=== PATIENT | male | born 1985 | race Caucasian/White ===

== ENCOUNTER 2017-03-06 02:30 | Emergency (ER) | payer OTHER ==
[~2017-03-06] VITALS: Ht 175.3 cm; Wt 77.4 kg
[2017-03-06 02:34] VITALS: Ht 175.3 cm; Wt 77.4 kg
[2017-03-06] MEDS ORDERED: SODIUM CHLORIDE 0.9% 1000ML 1,000 ML IV STA ×3 (02:47→05:41)
[2017-03-06] MEDS ORDERED: OPTIRAY 320 IV PRN (03:00)
[2017-03-06] MEDS ORDERED: ERTAPENEM 1 GM ADDVIAL IV ONE (03:15)
[2017-03-06] MEDS ORDERED: DIPHTHERIA/TETANUS/PERTUSSIS 0.5 ML SYR/VIAL IM. ONE (03:15)
[2017-03-06 03:25] LABS: ISTAT HEMOGLOBIN 13.9 g/dl (14.0-18.0); ISTAT IONIZED CALCIUM 1.15 mmol/l (1.12-1.32)
[2017-03-06] MEDS ORDERED: ONDANSETRON INJ 2 MG/ML 2 ML VIAL IV STA (03:25)
[2017-03-06] MEDS ORDERED: MoRPHine SULFATE 4 MG/ML 1 ML CARP\\VIAL IV STA (03:25)
[2017-03-06 03:27] LABS: ALT/SGPT 27 U/L (12-78); AST/SGOT 19 U/L (15-37); BLOOD UREA NITROGEN 16 mg/dl (7-18); BUN/CREATININE RATIO 15.7 (10-20); CALCIUM 8.2 mg/dl (8.5-10.1); CARBON DIOXIDE 23 mmol/L (21-32); CHLORIDE 108 mmol/L (98-107); CREATININE 0.99 mg/dl (0.60-1.40); GLUCOSE 85 mg/dl (70-99); POTASSIUM 3.7 mmol/L (3.5-5.1); SODIUM 142 mmol/L (136-145)
[2017-03-06 03:30] LABS: ALKALINE PHOSPHATASE 58 U/L (45-117)
[2017-03-06 03:35] LABS: MEAN CELL VOLUME 87.9 fL (80-100); MEAN CORPUSCULAR HEMOGLOBIN 30.8 pg (25-34); PLATELET COUNT 8 K/uL (130-400); RED BLOOD COUNT 4.78 M/uL (4.7-6.1); WHITE BLOOD COUNT 10.57 K/uL (4.8-10.8)
[2017-03-06 03:36] LABS: BASO % 0.3 %; BASO ABS # 0.03 K/uL (0-0.2); COMPLETE YES; EOS % 2.2 %; IG% 0.3 %; LARGE PLATELETS 1+; LYMPH % 31.1 %; LYMPH ABS # 3.29 K/uL (1.2-3.4); MONO % 8.2 %; NEUT % 57.9 %; PLT ESTIMATE SIGNIFIC DECREASED
--- NOTE | 2017-03-06 04:10 | EMERGENCY ROOM VISIT NOTE ---
ED Visit Note First contact with patient: 02:38 Patient seen by me with the physician physician assistant certified at bedside on an emergent basis upon patient's arrival. Patient has a penetrating right lower quadrant abdominal injury reportedly after falling onto a trailer hitch. Patient has an expanding hematoma with approximately 5 cm laceration present with mild diffuse abdominal tenderness. Patient's hemodynamically stable. Patient had an updated tetanus was given IV antibiotics. Patient underwent emergent CT imaging. [place] police were notified. Patient likely will be transferred to a trauma center for further evaluation of expanding hematoma and abdominal penetrating injury Allergies Coded Allergies: Cefaclor (Verified Allergy, Unknown, hives, 03/06/17) Vital Signs Date Time Temp Pulse Resp B/P (MAP) Pulse Ox O2 Delivery O2 Flow Rate FiO2 03/06/17 03:14 102 22 148/100 97 Room Air 03/06/17 03:12 98 Room Air 03/06/17 02:34 36.4 116 20 138/87 97 Room Air Laboratory Results 03/06/17 02:53 Test 03/06/17 02:51 03/06/17 02:53 03/06/17 03:00 03/06/17 03:13 Ethyl Alcohol mg/dL 11.0 mg/dl (0-3) RDW Standard Deviation 41.1 fL (36.4-46.3) RDW Coefficient of Variation 12.8 % (11.5-14.5) Immature Granulocyte % (Auto) 0.3 % White Blood Count 10.57 K/uL (4.8-10.8) Red Blood Count 4.78 M/uL (4.7-6.1) Hemoglobin 14.7 g/dL (14.0-18.0) Hematocrit 42.0 % (42-52) Mean Corpuscular Volume 87.9 fL (80-100) Mean Corpuscular Hemoglobin 30.8 pg (25-34) Mean Corpuscular Hemoglobin Concent 35.0 g/dl (32-36) Platelet Count 8 K/uL (130-400) Neutrophils (%) (Auto) 57.9 % Lymphocytes (%) (Auto) 31.1 % Monocytes (%) (Auto) 8.2 % Eosinophils (%) (Auto) 2.2 % Basophils (%) (Auto) 0.3 % Neutrophils # (Auto) 6.12 K/uL (1.4-6.5) Lymphocytes # (Auto) 3.29 K/uL (1.2-3.4) Monocytes # (Auto) 0.87 K/uL (0.11-0.59) Eosinophils # (Auto) 0.23 K/uL (0-0.5) Basophils # (Auto) 0.03 K/uL (0-0.2) Immature Granulocyte # (Auto) 0.03 K/uL (0.00-0.02) Platelet Estimate SIGNIFIC DECREASED Large Platelets 1+ Est Creatinine Clear Calc Drug Dose 107.2 ml/min Estimated GFR () 116.3 Estimated GFR (Non- 100.4 BUN/Creatinine Ratio 15.7 (10-20) Calcium Level 8.2 mg/dl (8.5-10.1) Total Bilirubin 0.3 mg/dl (0.2-1) Direct Bilirubin < 0.1 mg/dl (0-0.2) Aspartate Amino Transf (AST/SGOT) 19 U/L (15-37) Alanine Aminotransferase (ALT/SGPT) 27 U/L (12-78) Alkaline Phosphatase 58 U/L (45-117) Total Protein 7.4 gm/dl (6.4-8.2) Albumin 3.9 gm/dl (3.4-5.0) Lipase 199 U/L (73-393) Bedside Lactic Acid Venous 2.22 mmol/L (0.90-1.70) Bedside Hemoglobin 13.9 g/dl (14.0-18.0) Bedside Hematocrit 41 % (42-52) Bedside Sodium 142 mEq/L (135-144) Bedside Potassium 3.6 mEq/L (3.3-5.0) Bedside Chloride 103 mEq/L (101-112) Bedside Total CO2 23 mEq/l (24-31) Anion Gap 21.0 mmol/L (16-25) Bedside Blood Urea Nitrogen 16 mg/dl (7-18) Bedside Creatinine 1.0 mg/dl (0.6-1.3) Bedside Glucose (other) 88 mg/dl (70-99) Bedside Ionized Calcium (Jean Paul) 1.15 mmol/l (1.12-1.32) Test 03/06/17 03:42 Medications Administered Medications (Trade) Dose Ordered Sig/Alexander Route Start Time Stop Time Status Last Admin Dose Admin Sodium Chloride 1,000 ml @ 999 mls/hr Q1H1M STAT IV 03/06/17 02:47 03/06/17 03:47 DC 03/06/17 03:09 999 MLS/HR Sodium Chloride 1,000 ml @ 125 mls/hr Q8H STAT IV 03/06/17 02:47 03/06/17 10:46 03/06/17 04:03 125 MLS/HR Diphtheria/ Pertussis/Tetanus Vacc (Adacel Inj) 0.5 ml ONCE ONCE IM. 03/06/17 03:15 03/06/17 03:16 DC 03/06/17 04:03 0.5 ML Ertapenem (Invanz Iv) 1 gm ONE ONCE IV 03/06/17 03:15 03/06/17 03:16 DC 03/06/17 04:04 1 GM Morphine Sulfate (MoRPHine SULFATE INJ) 4 mg NOW STAT IV 03/06/17 03:25 03/06/17 03:27 DC 03/06/17 04:04 4 MG Ondansetron HCl (Zofran Inj) 4 mg NOW STAT IV 03/06/17 03:25 03/06/17 03:27 DC 03/06/17 04:04 4 MG Departure Information Referrals No Doctor, Assigned (PCP) Patient Instructions [facility]
[2017-03-06 04:14] LABS: PROTHROMBIN TIME (PATIENT) 10.7 SECONDS (9.0-12.0)
[2017-03-06 04:21] LABS: HEMATOCRIT 37.7 % (42-52); MEAN CELL VOLUME 87.9 fL (80-100); MEAN CORPUSCULAR HEMOGLOBIN 31.2 pg (25-34); MEAN CORPUSCULAR HGB CONC 35.5 g/dl (32-36); PLATELET COUNT 8 K/uL (130-400); RED BLOOD COUNT 4.29 M/uL (4.7-6.1); WHITE BLOOD COUNT 11.29 K/uL (4.8-10.8)
[2017-03-06 04:24] LABS: URINE APPEARANCE CLEAR (CLEAR); URINE BILIRUBIN NEG (NEG); URINE COLOR YELLOW; URINE NITRITE NEG (NEG); URINE PH 5.5 (4.5-7.5); URINE SPECIFIC GRAVITY 1.029 (1.000-1.030); UROBILINOGEN NEG (NEG)
[2017-03-06] MEDS ORDERED: NICOTINE 21 MG/24 HR TDSY ONE (04:40)
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
[2017-03-06 04:49] LABS: MANUAL MICROSCOPIC REQUIRED? NO; REVIEW REQ? NO
[2017-03-06 04:51] VITALS: BP 117/75; PULSE 92; TEMP 36.6; O2SAT 96
[2017-03-06 04:58] LABS: COMPLETE YES; EOSINOPHIL % 2.7 %; LYMPH ABS # 2.52 K/uL (1.2-3.4); LYMPHOCYTE % 22.3 %; NEUTROPHILS % 65.2 %
[2017-03-06 05:07] VITALS: BP 115/83; PULSE 95; TEMP 36.6; O2SAT 97
[2017-03-06 05:11] VITALS: BP 116/81; PULSE 98; TEMP 36.4; O2SAT 98
[2017-03-06 05:30] VITALS: BP 118/80; PULSE 95; TEMP 36.5; O2SAT 97
[2017-03-06 05:44] LABS: BENZODIAZEPINE, URINE NEG (NEG); COCAINE,URINE NEG (NEG); PHENCYCLIDINE, URINE NEG (NEG)
[2017-03-06] MEDS ORDERED: NURSING VERBAL MED ORDER ONE (06:00)
[2017-03-06] MEDS ORDERED: MoRPHine SULFATE 4 MG/ML 1 ML CARP\\VIAL ONE (06:02)
[2017-03-06 06:30] VITALS: PULSE 91; O2SAT 96
[2017-03-06 06:32] VITALS: BP 112/75
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
== END 2017-03-06 06:50 | disposition short-term general hospital (02) ==
LOC: C.EDB 02:32 → C.EDA 06:50
DX: S39.91XA Unspecified injury of abdomen, initial encounter (principal); S31.119A Laceration without foreign body of abdominal wall, unspecified quadrant without penetration into peritoneal cavity, initial encounter; S30.1XXA Contusion of abdominal wall, initial encounter; S80.212A Abrasion, left knee, initial encounter; D69.6 Thrombocytopenia, unspecified; W18.09XA Striking against other object with subsequent fall, initial encounter; F17.200 Nicotine dependence, unspecified, uncomplicated; F12.90 Cannabis use, unspecified, uncomplicated